=== PATIENT | male | born 1980 | race Caucasian/White ===

== ENCOUNTER 2016-09-19 13:30 | Emergency (ER) | payer SELFPAY | END 2016-09-19 14:13 | disposition home or self-care (01) | LOC: CED 13:30 → CFTX 13:30 | DX: H10.31 Unspecified acute conjunctivitis, right eye (principal); R00.0 Tachycardia, unspecified; R03.0 Elevated blood-pressure reading, without diagnosis of hypertension; F17.210 Nicotine dependence, cigarettes, uncomplicated | CPT/HCPCS: 99282 ==